=== PATIENT | female | born 1975 | race American Indian/Alaskan Native ===

== ENCOUNTER 2017-08-15 15:55 | Emergency (ER) | payer OTHER ==
[2017-08-15] MEDS ORDERED: CATAPRES PO ONE (19:34)
--- NOTE | 2017-08-15 20:51 | Emergency Department Report ---
Minor Respiratory - HPI Chief Complaint: Upper Respiratory Infection Stated Complaint: COUGH Time Seen by Provider: 08/15/17 19:11 Duration: 3 Days Severity: moderate Minor Respiratory: Yes Rhinorrhea, Yes Able to Tolerate Fluids, Yes Cough, Yes Sick Contacts, No Sore Throat, No Ear Pain, No Hemoptysis, No Chest Pain, No Shortness of Breath, No Fever Other History: 42 y.o. F, presents with non-productive cough, headache, and congestion x 3 days. States some of her co-workers have been sick and possibly got this from them. She tried taking theraflu and tylenol with minimal improvement. Denies fever, SOB, chest pain, muscle aches, and sore throat. States she went to [place] a month ago and diagnosed with HTN but never returned for prescriptions. She is wondering if we can give her something for blood pressure. ED Review of Systems ROS: Stated complaint: COUGH Other details as noted in HPI Constitutional: no symptoms reported, see HPI. denies: chills, diaphoresis, fever, malaise, weakness Eyes: as per HPI. denies: eye pain, eye discharge, vision change ENT: as per HPI, congestion. denies: ear pain, throat pain, dental pain, hearing loss, epistaxis Respiratory: see HPI, cough. denies: orthopnea, shortness of breath, SOB with exertion, SOB at rest, stridor, wheezing Cardiovascular: as per HPI. denies: chest pain, palpitations, dyspnea on exertion, orthopnea, edema, syncope, paroxysmal nocturnal dyspnea Gastrointestinal: as per HPI. denies: abdominal pain, nausea, vomiting, diarrhea, constipation, hematemesis, melena, hematochezia Psychiatric: as per HPI. denies: anxiety, depression, auditory hallucinations, visual hallucinations, homicidal thoughts, suicidal thoughts ED Past Medical Hx - Past Medical History Previous Medical History?: Yes Hx Hypertension: Yes - Surgical History Past Surgical History?: Yes Additional Surgical History: - Social History Smoking Status: Current Every Day Smoker (10 cigarettes a day) Substance Use Type: None - Medications Home Medications: Home Medications Medication Instructions Recorded Confirmed Last Taken Type Azithromycin [Zithromax Z-AMINA] 250 mg PO DAILY 5 Days #6 tablet 08/15/17 Unknown Rx Benzonatate 200 mg PO TID 10 Days #30 capsule 12/08/17 Unknown Rx Hydrochlorothiazide [HCTZ] 12.5 mg PO ONCE 30 Days #30 tablet 08/15/17 Unknown Rx amLODIPine [Norvasc] 5 mg PO ONCE 30 Days #30 tablet 08/15/17 Unknown Rx Minor Respiratory Exam - Exam General: Vital signs noted. No distress. Alert and acting appropriately. HEENT: Yes Pharyngeal Erythema, Yes Moist Mucous Membranes, Yes Rhinorrhea, No Pharyngeal Exudates, No Conjuctival Injection, No Frontal Tenderness, No Maxillary Tenderness Ear: Neither TM Bulge, Neither TM Erythema, Neither EAC Pain, Neither EAC Discharge Neck: Yes Supple, No Adenopathy Lungs: Yes Good Air Exchange, Yes Cough, No Wheezes, No Ronchi, No Stridor, No Labored Respirations, No Retractions, No Use of Accessory Muscles, No Other Abnormal Lung Sounds Heart: Yes Regular, No Murmur Abdomen: Yes Normal Bowel Sounds, No Tenderness, No Peritoneal Signs Skin: No Rash, No Edema Neurologic: Alert and oriented, no deficits. Musculoskeletal: Unremarkable. ED Course Vital Signs 08/15/17 08/15/17 16:05 19:55 Temperature 98.1 F Pulse Rate 66 66 Respiratory 20 Rate Blood Pressure 185/110 185/110 O2 Sat by Pulse 98 Oximetry ED Medical Decision Making - Medical Decision Making 42 y.o. female, presents with non-productive cough, headache, and congestion x 3 days. Diagnosed with HTN a month ago at [facility] but never returned for new prescriptions. State insurance just started this month. BP 158/ 100 on arrival, 182/100 after given clonidine 0.1 mg po once, amilodipine 5 mg po once, HCTZ 12.5 mg po once. Patient refused to stay longer for blood pressure control. Discharged home with RX for amilodipine and HCTZ and advised to f/u with PCP, given referrals to [facility]. Critical care attestation.: If time is entered above; I have spent that time in minutes in the direct care of this critically ill patient, excluding procedure time. ED Disposition Clinical Impression: Bronchitis Hypertension Qualifiers: Hypertension type: essential hypertension Qualified Code(s): I10 - Essential ( primary) hypertension Disposition: TO HOME OR SELFCARE Is pt being admited?: No Does the pt Need Aspirin: No Condition: Stable Instructions: Chronic Bronchitis (ED), Hypertension (ED) Prescriptions: amLODIPine [Norvasc] 5 mg PO ONCE 30 Days #30 tablet Azithromycin [Zithromax Z-AMINA] 250 mg PO DAILY 5 Days #6 tablet Benzonatate 200 mg PO TID 10 Days #30 capsule Hydrochlorothiazide [HCTZ] 12.5 mg PO ONCE 30 Days #30 tablet Referrals: PRIMARY CARE, [Primary Care Provider] - 3-[address] [facility] [Outside] - 3-5 Days [facility] [Outside] - 3-5 Days Forms: Work/School Release Form(ED) Time of Disposition: 22:34 Print Language: GREENLANDIC
[2017-08-15] MEDS ORDERED: HCTZ PO ONE (20:54)
[2017-08-15] MEDS ORDERED: NORVASC PO ONE (20:54)
[2017-08-15] MEDS ORDERED: HCTZ ONE (21:05)
[2017-08-15 21:51] VITALS: BP 182/100
== END 2017-08-15 22:38 | disposition home or self-care (01) ==
LOC: ED 15:55
DX: J40 Bronchitis, not specified as acute or chronic (principal); I10 Essential (primary) hypertension; F17.210 Nicotine dependence, cigarettes, uncomplicated
CPT/HCPCS: 99282

== ENCOUNTER 2018-03-07 17:51 | Emergency (ER) | payer BC ==
--- NOTE | 2018-03-07 22:13 | Emergency Department Report ---
Pediatric URI - HPI Chief Complaint: Sore Throat Stated Complaint: SORE THROAT/NECK PAIN Time Seen by Provider: 03/07/18 21:45 ED Review of Systems ROS: Stated complaint: SORE THROAT/NECK PAIN Other details as noted in HPI Pediatric Past Medical History - Surgeries & Procedures Additional Surgical History: ED Peds URI Exam - Exam General: Vital signs noted. No distress. Alert and acting appropriately. Neurologic: Alert and oriented, no deficits. Musculoskeletal: Unremarkable. ED Course Vital Signs 03/07/18 17:57 Temperature 98.3 F Pulse Rate 80 Respiratory 18 Rate Blood Pressure 115/76 O2 Sat by Pulse 100 Oximetry Critical care attestation.: If time is entered above; I have spent that time in minutes in the direct care of this critically ill patient, excluding procedure time. ED Disposition Condition: Stable Referrals: PRIMARY CARE [Primary Care Provider] - 3-5 Days
[2018-03-07] MEDS ORDERED: MOTRIN PO ONE (23:53)
--- NOTE | 2018-03-07 23:54 | Emergency Department Report ---
Minor Respiratory - HPI Chief Complaint: Sore Throat Stated Complaint: SORE THROAT/NECK PAIN Time Seen by Provider: 03/07/18 21:45 Duration: 2 Days Pain Location: Throat Severity: severe Minor Respiratory: Yes Sore Throat (8/10, achy. Worse with swallowing. Pain), Yes Able to Tolerate Fluids ( is constant), No Rhinorrhea, No Ear Pain, No Cough , No Sick Contacts, No Hemoptysis, No Chest Pain, No Shortness of Breath, No Fever Other History: This is a 42-year-old female who is here complaining that she is having sore throat 2 days. Pain is 8 out of 10 and achy. Pain is worse with swallowing and it is constant. Denies any drooling, shortness of breath, chest pain, cough, nasal congestion or runny nose. Denies any fever or chills. Denies any nausea or vomiting. She says she took ibuprofen 2 hours ago with no relief of symptoms. She also says she uses Orajel with no relief. Denies any abdominal pain. Pain is constant and worse with swallowing. She is also complaining that she has swelling to both sides of her neck. ED Review of Systems ROS: Stated complaint: SORE THROAT/NECK PAIN Other details as noted in HPI Constitutional: denies: chills, fever Eyes: denies: eye discharge ENT: throat pain. denies: ear pain, dental pain, hearing loss, congestion Respiratory: denies: cough, shortness of breath, SOB with exertion, SOB at rest , stridor, wheezing Cardiovascular: denies: chest pain, palpitations, edema, syncope Gastrointestinal: denies: abdominal pain, nausea, vomiting, diarrhea Musculoskeletal: denies: back pain, joint swelling, arthralgia Skin: denies: rash, lesions Neurological: paresthesias. denies: headache, weakness, abnormal gait ED Past Medical Hx - Past Medical History Previous Medical History?: Yes Hx Hypertension: Yes - Surgical History Past Surgical History?: Yes Additional Surgical History: - Family History Family history: hypertension - Social History Smoking Status: Current Every Day Smoker Substance Use Type: Alcohol, Marijuana - Medications Home Medications: Home Medications Medication Instructions Recorded Confirmed Last Taken Type Azithromycin [Zithromax Z-AMINA] 250 mg PO DAILY 5 Days #6 tablet 08/15/17 Unknown Rx Benzonatate 200 mg PO TID 10 Days #30 capsule 08/15/17 Unknown Rx Hydrochlorothiazide [HCTZ] 12.5 mg PO ONCE 30 Days #30 tablet 08/15/17 Unknown Rx amLODIPine [Norvasc] 5 mg PO ONCE 30 Days #30 tablet 08/15/17 Unknown Rx Ibuprofen [Motrin] 600 mg PO Q8H PRN 10 Days #30 03/08/18 Unknown Rx tablet Penicillin V Potassium 500 mg PO Q8H 10 Days #30 tablet 03/08/18 Unknown Rx Minor Respiratory Exam - Exam General: Vital signs noted. No distress. Alert and acting appropriately. This is a 42-year-old female well-nourished well-developed in no acute distress and she is nontoxic in appearance. HEENT: Yes Pharyngeal Erythema, Yes Pharyngeal Exudates (no ART COORDINATOR), Yes Moist Mucous Membranes (uvula is midline and oral airways patent), No Rhinorrhea, No Conjuctival Injection, No Frontal Tenderness, No Maxillary Tenderness Ear: Neither TM Bulge, Neither TM Erythema, Neither EAC Pain, Neither EAC Discharge Neck: Yes Adenopathy (Bilateral anterior cervical), Yes Supple (full range of motion and no C-spine tenderness) Lungs: Yes Good Air Exchange (CTAB), No Wheezes, No Ronchi, No Stridor, No Cough , No Labored Respirations, No Retractions, No Use of Accessory Muscles, No Other Abnormal Lung Sounds Heart: Yes Regular (S1, S2. Regular rate and rhythm), No Murmur Abdomen: Yes Tenderness (nontender the palpation in all quadrants.), Yes Normal Bowel Sounds (in all quadrants), No Peritoneal Signs Skin: No Rash, No Edema Neurologic: Alert and oriented, no deficits. Musculoskeletal: Unremarkable. ED Course Vital Signs 03/07/18 17:57 Temperature 98.3 F Pulse Rate 80 Respiratory 18 Rate Blood Pressure 115/76 O2 Sat by Pulse 100 Oximetry - Reevaluation(s) Reevaluation #1: 03/07/18 23:54 Patient given Motrin 800 mg. Emergency room for sore throat. She remained stable in emergency room. ED Medical Decision Making - Medical Decision Making ED course: This is a 42-year-old female here reports that she is having sore throats that is not relieved with ibuprofen. She is not having any other symptoms and pain with swallowing is worse. She is here to be examined. Patient was seen and examined by myself and found to have exudative pharyngitis with bilateral anterior cervical.chain lymphedema . She has erythema to her oropharynx without exudate without any enlarged tonsils and no signs of ART COORDINATOR. Based on [facility] criteria, patient with right throat with exudate and Lymphadenopathy with absence of cough and respiratory symptoms she has exudative pharyngitis. She was given pain medication which relieved her sore throat and I explained to her her diagnosis and there is no need to do a strep test. She voiced understanding. Patient chose to be on penicillin rather than getting Bicillin. A/P 1: Exudative pharyngitis-sheet given Motrin 800 mg. Emergency room which relieved her pain. Patient will be discharged home on penicillin and Motrin. Will refer to follow up with primary care 2: Lymphadenopathy, cervical-will resolve after infection is resolved Parents educated on diagnosis, medication, gargle with warm salt water to help to relieve sore throat. She voiced understanding. Patient discharged home in stable condition and her vital signs are stable she is afebrile. She is nontoxic in appearance. I discussed the facies to follow- up with her primary care physician in 2-3 days and if she doesn't have on follow -up at [facility]. I also discussed with her that if her condition worsens and she is to follow-up in a respiratory distress, close and the throat to return to the emergency room and she voiced understanding. Patient discharged home with prescription for penicillin and Motrin. - Differential Diagnosis ART COORDINATOR, strep pharyngitis, viral pharyngitis, URI, tonsillitis Critical care attestation.: If time is entered above; I have spent that time in minutes in the direct care of this critically ill patient, excluding procedure time. ED Disposition Clinical Impression: Exudative pharyngitis, Anterior cervical lymphadenopathy Disposition: DC-01 TO HOME OR SELFCARE Is pt being admited?: No Does the pt Need Aspirin: No Condition: Stable Instructions: Strep Throat (ED), Lymphadenopathy (ED) Additional Instructions: Please take antibiotic as prescribed Follow-up with primary care physician in 2-3 days Take Motrin as prescribed for pain but take with food If your condition worsens to include difficulty breathing, swallowing, chest pain, nausea and vomiting and fever does not relief with Motrin please return to the emergency room ANGELA. Gargle with warm salt water and this will help to relieve sore throat Prescriptions: Ibuprofen [Motrin] 600 mg PO Q8H PRN 10 Days #30 tablet PRN Reason: Pain Penicillin V Potassium 500 mg PO Q8H 10 Days #30 tablet Referrals: PRIMARY CARE, [Primary Care Provider] - 2-3 Days [facility] [Outside] - 2-3 Days Forms: Work/School Release Form(ED)
[2018-03-08] VITALS: BP 122/80
== END 2018-03-08 00:26 | disposition home or self-care (01) ==
LOC: ED 17:51
DX: J02.9 Acute pharyngitis, unspecified (principal); L04.0 Acute lymphadenitis of face, head and neck; I10 Essential (primary) hypertension; F17.200 Nicotine dependence, unspecified, uncomplicated
CPT/HCPCS: 99282